=== PATIENT | female | born 1990 | race Two or more races ===

== ENCOUNTER 2021-07-24 09:53 | Outpatient (REF) | payer OTHER, SELFPAY ==
--- NOTE | ~2021-07-24 | XR_ITS ---
EXAMINATION: XR CHEST CLINICAL INFORMATION: Mild intermittent asthma COMPARISON: None TECHNIQUE: 2 views of the chest were obtained. FINDINGS: No significant abnormality is noted involving the heart, lungs, mediastinum, bony thorax or soft tissues. XR/XR chest 2V IMPRESSION: Unremarkable examination.
[2021-07-24 10:59] LABS: Hematocrit 41.3 % (37.0-47.0); Hemoglobin 13.8 g/dl (12.0-16.0); Mean Corpuscular HGB Conc 33.4 g/dl (31.0-35.0); Mean Corpuscular Hemoglobin 28.6 pg (27.0-33.0); Mean Corpuscular Volume 85.7 fL (80.0-98.0); Mean Platelet Volume 10.8 fL (9.4-12.3); Platelet Count 340 X10*3/uL (160-400); Red Blood Count 4.82 X10*6/uL (4.20-5.50)
[2021-07-24 11:13] LABS: Alanine Aminotransferase 15 U/L (0-31); Albumin Level 4.5 g/dL (3.5-5.0); Alkaline Phosphatase 88 U/L (39-117); Anion Gap 12 (12-20); Aspartate Amino Transferase 16 U/L (5-31); Blood Urea Nitrogen 12 mg/dL (9-16); Calcium 9.9 mg/dL (8.4-10.2); Carbon Dioxide 25 mmol/L (22-29); Chloride 105 mmol/L (96-108); Estimated Glomerular Filt Rate > 60; Glucose Fasting 100 mg/dL (60-99); Potassium 4.4 mmol/L (3.3-5.1); Sodium 138 mmol/L (135-145); Total Protein 7.6 g/dL (6.5-8.0)
[2021-07-24 11:15] LABS: Estimated Average Glucose 105 mg/dL; Hemoglobin A1c % 5.3 %
[2021-07-24 11:25] LABS: TSH reflex Free T4 0.93 uIU/mL (0.32-4.0)
== END 2021-07-24 09:54 | disposition home or self-care (01) ==
LOC: HO.XRAY 09:53
PROVIDERS: PCP Physician Assistant; Visit Provider Physician Assistant
DX: Z13.29 Encounter for screening for other suspected endocrine disorder (principal); J45.20 Mild intermittent asthma, uncomplicated
CPT/HCPCS: 36415; 71046; 80053; 83036; 84443; 85027

== ENCOUNTER 2023-03-11 11:19 | Outpatient (AMB) | payer OTHER, SELFPAY ==
--- NOTE | 2023-03-11 11:57 | AM.OFFVISNUR ---
Intake Intake Visit Reasons: TB Allergies sertraline [From Zoloft] Adverse Reaction (Intermediate, Verified 05/30/22 10:52) Diarrhea Office Meds tuberculin PPD 5 tub. unit/0.1 mL intradermal injection solution Performing Provider: Ildefonso Kwan PA-C [facility] Administered by: Urvashi Mcgrath RN on 03/11/23 11:57 Dose Route Admin Location Dispensed Lot Number Expiration Date NDC Photograph Enlarger 0.1 mL intradermal left forearm 0.1 mL [id number] 03/24/26 45215-120-82 [employer] Coding Assessment & Plan Assessment & Plan Orders: Orders AMB PPD Planted Today Z11.1 - Encounter for screening for respiratory tuberculosis
== END 2023-03-11 11:57 | disposition home or self-care (01) ==
PROVIDERS: PCP Physician Assistant; Visit Provider Physician Assistant
DX: Z11.1 Encounter for screening for respiratory tuberculosis (principal)
CPT/HCPCS: 86580

== ENCOUNTER 2024-09-30 13:25 | Outpatient (AMB) | payer OTHER, SELFPAY ==
--- NOTE | 2024-09-30 13:28 | MHC.PC.OV ---
Vital Signs 09/30/24 13:38 Height 5 ft Weight 203 lb BMI 39.6 BP 98/70 Blood Pressure Location Lt brachial Position Sitting Pulse 74 Pulse Source Pulse Oximeter Temp 97.1 F Temp Source Temporal Artery Scan Pulse Oximetry (%) 99 Oxygen Delivery Method Room Air Intake Visit Reasons: annual exam Composition Molder Required: No Accompanied by: Self / Same As Patient Allergies sertraline [From Zoloft] Adverse Reaction (Intermediate, Verified 09/30/24 13:48) Diarrhea Medication List - Last Reconciled 09/30/24 by Ildefonso Kwan PA-C acetaminophen 500 mg PO TID 30 days albuterol sulfate 90 mcg/actuation (Ventolin HFA) 1 inh inhalation QID PRN 30 days escitalopram oxalate (Lexapro) 5 mg PO DAILY 30 days lorazepam 0.5 mg PO BID 4 days norethindrone (contraceptive) (Incassia) 0.35 mg PO DAILY sumatriptan succinate take 1 tab at onset of headache; if no relief may repeat 1 tab after at least 2 hrs; max = 4 tabs/24 hr PO Tobacco use date assessed: 09/30/24 Dental Screening Dental Screen Date: 09/30/24 Did you have a dental visit in the last 12 months?: Yes Did you have a dental problem in the last 6 months where you did not have access to dental care?: No Was dental information given to patient?: Patient has dentist HPI annual exam HPI Details Patient is a 33-year-old female here today for routine annual physical. Patient has a past medical history significant for generalized anxiety disorder, major depressive disorder, obesity. .. Concerns--> The patient describes symptoms of pain associated with Achilles tendonitis, worsened by physical activities, and acknowledges the positive impact of reducing sodium intake on her well-being Generalized anxiety disorder: She reports her anxiety is has been fairly well controlled without medication. Was previously on SSRI therapy and p.r.n. use of lorazepam .. Class 2 obesity: She reports challenges in losing weight and notes a 4-pound decrease over the past few months. Despite regular home workouts and efforts to manage her diet, she is finding it difficult to achieve her weight loss goals. She attributes some difficulty to personal life stressors. 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 Vaccine: Up-to-date with tetanus vaccine, up-to-date with flu vaccine, declines COVID [facility] Surgical History S/P wisdom tooth extraction History of removal of ovarian cyst Family History Father Substance use disorder Mother Diabetes Substance use disorder Sister Cervical cancer Daughter No problems noted. 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 1. Little interest or pleasure in doing things: not at all 2. Feeling down, depressed, or hopeless: several days 3. Trouble falling or staying asleep, or sleeping too much: several days 4. Feeling tired or having little energy: not at all 5. Poor appetite or overeating: several days 6. Feeling bad about yourself - or that you are a failure or have let yourself or your family down: not at all 7. Trouble concentrating on things, such as reading the newspaper or watching television: several days 8. Moving or speaking so slowly that other people could have noticed. Or the opposite - being so fidgety or restless that you have been moving around a lot more than usual: not at all 9. Thoughts that you would be better off or of hurting yourself in some way: not at all Total score: 4 Depression Screening Interpretation: Negative Depression Screening Done: Yes 60478 - PHQ-9 Billing: Yes Source: Developed by Drs. Elpidio Lynch, Kath Santana, Figueroa Fields and colleagues, with an educational leticia from [employer]. Thrive Questionnaire Date Thrive assessed: 09/30/24 I am a: Patient What is your living situation today?: I have a steady place to live Within the past 12 months, did the food you bought not last and you didn't have the money to get more?: Never true Within the past 12 months, did you worry whether your food would run out before you got money to buy more?: Sometimes True Do you have trouble paying for medicines?: No Do you have trouble getting transportation to medical appointments?: Yes Do you have trouble paying your heating and electricity bill?: No Do you have trouble taking care of your child, family member or friend?: No Do you have trouble with day-to-day activities such as bathing, preparing meals, shopping, managing finances, etc.?: No Are you currently unemployed and looking for a job?: No Are you interested in more education?: No Please select the resources that you would like help with: None Currently or been in a relationship where the following occur: No concerns reported THRIVE Score: 2 AUDIT C Alcohol Use Questionnaire (AUDIT-C) 1. How often do you have a drink containing alcohol?: Monthly or less 2. How many drinks containing alcohol do you have on a typical day when you are drinking?: 1 or 2 3. How often do you have six or more drinks on one occasion?: Never Total Score: 1 RUDDY-7 AMB Questionnaire RUDDY-7 Date RUDDY - 7 assessed: 09/30/24 Feeling nervous, anxious, or on edge: 1 = Several days Not being able to stop or control worryin = Several days Worrying too much about different things: 1 = Several days Trouble relaxin = Several days Being so restless that it is hard to sit still: 1 = Several days Becoming easily annoyed or irritable: 0 = Not at all Feeling afraid as if something awful might happen: 0 = Not at all Total RUDDY-7 score (0-4 normal; 5-9 mild; 10-14 moderate; 15-21 severe): 5 Source: Developed by Drs. Elpidio Lynch, Kath Santana, Figueroa Fields and colleagues, with an educational leticia from [employer]. RUDDY-7 Assessment Billing RUDDY-7 Assessment Tool: RUDDY-7 Assessment 29193 Review of Systems Const Denies body aches, Denies chills, Denies excessive sweating, Denies fatigue, Denies fever(s) and Denies headache(s) Eyes Denies blurry vision ENT Denies dysphagia, Denies vertigo, Denies dizziness, Denies headache(s), Denies hearing loss and Denies tinnitus Card Denies chest pain, Denies chest pain with activity, Denies syncope, Denies irregular heart rhythm and Denies dyspnea Resp Denies chest congestion, Denies cough, Denies hemoptysis, Denies dyspnea and Denies wheezing GI Denies abdominal pain, Denies melena, Denies hematochezia, Denies coffee ground emesis, Denies dysphagia, Denies diarrhea, Denies nausea and Denies vomiting Denies urinary frequency, Denies dysuria, Denies urinary hesitancy and Denies urinary urgency Musc Denies arthralgias, Denies limited range of motion, Denies muscle cramps and Denies muscle weakness Skin/Breast Denies rash and Denies skin ulcer Neuro Denies Abnormal speech present, Denies confusion, Denies vertigo, Denies dizziness, Denies syncope, Denies headache(s), Denies memory loss and Denies seizure-like activity Psych Denies anxiety, Denies confusion, Denies depression, Denies memory loss, Denies panic attacks and Denies paranoia Endo Denies excessive sweating, Denies fatigue, Denies flushing, Denies polydipsia and Denies polyuria Aller/Immun Denies wheezing Physical exam (Primary Care) Vital Signs: Last Vital Signs Temp 97.1 F 09/30/24 13:38 Pulse 74 09/30/24 13:38 BP 98/70 09/30/24 13:38 Pulse Ox 99 09/30/24 13:38 Oxygen Delivery Method Room Air 09/30/24 13:38 BMI result Body Mass Index 39.6 BMI Assessment/Plan discussion: High BMI High, discussed plan: lifestyle, weight reduction, dietary and physical activity Tobacco/Smoking Status: Tobacco use Status Tobacco use date assessed 09/30/24 09/30/24 13:36 Patient Tobacco Use Status Never used Tobacco 09/30/24 13:28 Tobacco use type 05/30/22 11:18 e-Cigarette/Vaping Use Never Used 09/30/24 13:28 PHQ-9: PHQ-9 Score PHQ-9: Total score 4 09/30/24 13:36 Depression Screening Interpretation: Negative Thrive Assessment: Date of Thrive Assessment Date Thrive assessed 09/30/24 09/30/24 13:36 Currently or been in a relationship where the following occur: No concerns reported Const Other: Obese General: cooperative, comfortable, no acute distress, alert and awake; No confusion Orientation/consciousness: oriented to person, oriented to place, patient oriented x3 and No confusion [facility] Head: Yes normocephalic Ears: external ears normal and TM's normal bilaterally Face and sinus: No sinus tenderness Mouth: Normal oral and palatal mucosa present and tongue normal Teeth and gingiva: dentition normal and gingiva normal Throat: Yes posterior oropharynx normal, Yes tonsils normal and Yes uvula midline Eyes Conjunctivae: conjunctivae normal Sclerae: sclerae normal Pupils: Equal, round and reactive pupils present EOM: EOMs intact bilaterally Direct Ophthalmoscopy: No no photophobia Neck Neck: Yes no lymphadenopathy, No tender and Yes no JVD Thyroid: Thyroid normal Carotids: no bruits Chest Chest palpation & inspection: no tenderness Resp Effort & Inspection: normal respiratory effort, no audible wheezes, not labored and no stridor Auscultation: no crackles, no rales, no rhonchi and no wheezes Cardio Jugular venous distension: no JVD Rate: regular rate, not bradycardic and not tachycardic Rhythm: regular rhythm Bruits: no carotid bruits Peripheral pulses: Peripheral pulses 2+ throughout GI Inspection: Yes normal to inspection, No abdominal wall ecchymosis and No visible herniation Palpation (GI): Soft to palpation, nontender, no guarding, not rigid and No hepatosplenomegaly present Auscultation: normoactive bowel sounds General: Yes no CVA tenderness Back/Spine/Pelvis Back: no CVA tenderness and No back tenderness Cervical Spine: cervical ROM normal Thoracic/Lumbar Spine: thoracic and lumbar spine normal to inspection, straight leg raise negative bilaterally, No thoraco-lumbar ROM limited and No lumbar spinal tenderness Skin Lesions: no lesions Rashes: no rashes Wounds: no wounds Neuro General: oriented to person, oriented to place, patient oriented x3, CN's II-XI intact bilaterally and No confusion Cranial nerves: Yes Equal, round and reactive pupils present and Yes Normal accommodation reflex present Cognition (Neuro): normal cognition Speech: No Abnormal speech present Gait exam (Neuro): Normal gait present Motor exam (neuro): 5/5 motor strength present throughout Extrem Right upper extremity: full ROM; no cyanosis Left upper extremity: full ROM; no cyanosis Right lower extremity: no edema Left lower extremity: no edema Psych Appearance: grossly normal Mental Status: mental status grossly normal Affect: normal affect Attitude: cooperative Thought process: Normal thought process present Coding Level of Care Code Est Pt Prev Care 18-39y(07177) Diagnoses Annual physical exam Z00.00 Mild intermittent asthma without complication J45.20 Asthma severity: mild Asthma persistence: intermittent Asthma complication type: uncomplicated RUDDY (generalized anxiety disorder) F41.1 Class 2 obesity E66.812 Achilles tendinitis of right lower extremity M76.61 Screening-pulmonary TB Z11.1 Additional Codes RUDDY-7 Assessment Billing - RUDDY-7 Assessment Tool: RUDDY-7 Assessment 67160 ([id number]) PHQ-9 - 92326 - PHQ-9 Billing: Yes ([id number]) Assessment & Plan Assessment & Plan (1) Annual physical exam: Code(s): Z00.00 - Encounter for general adult medical examination without abnormal findings Category: Medical Plan: As per HPI (2) Asthma: Code(s): J45.909 - Unspecified asthma, uncomplicated Category: Medical Qualifiers: Asthma severity: mild Asthma persistence: intermittent Asthma complication type: uncomplicated Qualified Code(s): J45.20 - Mild intermittent asthma, uncomplicated Plan: Patient reports her asthma is fairly well controlled, does exacerbate during allergy season and winter months. Does have an albuterol inhaler available to her to use for shortness of breath and wheeze. (3) RUDDY (generalized anxiety disorder): Code(s): F41.1 - Generalized anxiety disorder Category: Medical Plan: Patient reports her anxiety has been well controlled without medication. Was previously on SSRI and lorazepam as needed though feels he does not need this medication and/or mental health therapy. (4) Class 2 obesity: Code(s): E66.812 - Obesity, class 2 Category: Medical Plan: Patient does understand her BMI is over 35 and has been trying due adapt to better eating habits and be more physically active to reduce her weight. She has been struggling to lose weight and is interested in speaking with the weight workforce management manager and will weight reduction medication. (5) Achilles tendinitis of right lower extremity: Code(s): M76.61 - Achilles tendinitis, right leg Category: Medical Plan: Recommend therapy for flexibility and inflammation management due to pain with activities. 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 Orders: Orders Complete Blood Count no Diff Today Z13.1 - Encounter for screening for diabetes mellitus T Spot TB Today Z11.1 - Encounter for screening for respiratory tuberculosis TSH reflex Free T4 Today E66.812 - Obesity, class 2 Comprehensive Eleva. Panel Fast Today Z13.1 - Encounter for screening for diabetes mellitus Referrals Medical Weight Management Referral E66.812 - Obesity, class 2 Medications: Refilled acetaminophen 500 mg PO TID 30 days 90 tabs 2RF pain G43.009 - Migraine without aura, not intractable, without status migrainosus albuterol sulfate 90 mcg/actuation (Ventolin HFA) 1 inh inhalation QID 30 days PRN 8.5 grams 1RF shortness of breath or wheezing J45.20 - Mild intermittent asthma, uncomplicated Discontinued sumatriptan succinate Discontinued Reason: Doctor's Order take 1 tab at onset of headache; if no relief may repeat 1 tab after at least 2 hrs; max = 4 tabs/24 hr PO 9 tabs 2RF G43.009 - Migraine without aura, not intractable, without status migrainosus lorazepam Discontinued Reason: Doctor's Order 0.5 mg PO BID 4 days 8 tabs 0RF anxiety F41.1 - Generalized anxiety disorder escitalopram oxalate (Lexapro) Discontinued Reason: Doctor's Order 5 mg PO DAILY 30 days 30 tabs 6RF F41.1 - Generalized anxiety disorder
[2024-09-30 13:38] VITALS: BP 98/70; PULSE 74; TEMP 36.2; O2SAT 99; BMI 39.6
== END 2024-09-30 14:08 | disposition home or self-care (01) ==
LOC: HO.HMCH 13:26
PROVIDERS: PCP Physician Assistant; Visit Provider Physician Assistant
DX: Z00.00 Encounter for general adult medical examination without abnormal findings (principal); J45.20 Mild intermittent asthma, uncomplicated; Z68.39 Body mass index [BMI] 39.0-39.9, adult; E66.812 Obesity, class 2; F41.1 Generalized anxiety disorder; M76.61 Achilles tendinitis, right leg; Z11.1 Encounter for screening for respiratory tuberculosis

== ENCOUNTER → 2024-09-30 13:25 | Outpatient (BNVA) | payer OTHER, SELFPAY | PROVIDERS: PCP Physician Assistant; Visit Provider Physician Assistant | DX: Z00.00 Encounter for general adult medical examination without abnormal findings (principal); F41.1 Generalized anxiety disorder; F32.A Depression, unspecified; J45.20 Mild intermittent asthma, uncomplicated; G43.009 Migraine without aura, not intractable, without status migrainosus; M76.61 Achilles tendinitis, right leg; E66.812 Obesity, class 2; Z68.39 Body mass index [BMI] 39.0-39.9, adult | CPT/HCPCS: 96127; 99395 ==

== ENCOUNTER 2024-10-06 09:49 | Outpatient (REF) | payer OTHER, SELFPAY ==
[2024-10-06 10:24] LABS: Hematocrit 41.3 % (37.0-47.0); Hemoglobin 14.2 g/dl (12.0-16.0); Mean Corpuscular HGB Conc 34.4 g/dl (31.0-35.0); Mean Corpuscular Hemoglobin 28.7 pg (27.0-33.0); Mean Corpuscular Volume 83.6 fL (80.0-98.0); Mean Platelet Volume 10.2 fL (9.4-12.3); Platelet Count 295 X10*3/uL (160-400); Red Blood Count 4.94 X10*6/uL (4.20-5.50); White Blood Count 10.3 X10*3/uL (4.8-10.8)
[2024-10-06 11:06] LABS: Alanine Aminotransferase 14 U/L (0-31); Albumin Level 4.4 g/dL (3.5-5.0); Alkaline Phosphatase 92 U/L (39-117); Anion Gap 10 (12-20); Aspartate Amino Transferase 19 U/L (5-31); Bilirubin Total 0.7 mg/dL (0.0-1.0); Blood Urea Nitrogen 12 mg/dL (9-16); Carbon Dioxide 25 mmol/L (22-29); Chloride 106 mmol/L (96-108); Estimated Glomerular Filt Rate > 60; Glucose Fasting 93 mg/dL (60-99); Potassium 4.2 mmol/L (3.3-5.1); Sodium 137 mmol/L (135-145); TSH reflex Free T4 0.84 uIU/mL (0.32-4.0); Total Protein 7.5 g/dL (6.5-8.0)
[2024-10-11 00:49] LABS: TS Negative Control Passed; TS Panel A 0; TS Panel B 0; TS Positive Control Passed; TSpotTB Negative (Negative)
== END 2024-10-06 09:50 | disposition home or self-care (01) ==
LOC: HO.LAB 09:49
PROVIDERS: PCP Physician Assistant; Visit Provider Physician Assistant
DX: Z13.1 Encounter for screening for diabetes mellitus (principal); Z11.1 Encounter for screening for respiratory tuberculosis; E66.812 Obesity, class 2
CPT/HCPCS: 36415; 80053; 84443; 85027; 86481

== ENCOUNTER 2025-02-21 08:17 | Outpatient (AMB) | payer OTHER, SELFPAY ==
[2025-02-21 10:56] VITALS: BMI 39.1
--- NOTE | 2025-02-21 10:56 | MHC.OFFVISWM ---
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 Was referred to us by Dr. Kwan. Previous weight loss efforts include self diets and exercise. [facility] Medical History (Updated 02/21/25 @ 11:00 by Gianluca Dunaway MD) Anxiety Depression Asthma BMI 39.0-39.9,adult Surgical History S/P wisdom tooth extraction History of removal of ovarian cyst Family History Father Substance use disorder Mother Diabetes Substance use disorder Sister Cervical cancer Daughter No problems noted. 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 Cognitive needs: No Hearing needs: No Vision needs: No Telehealth Telehealth Telehealth Platform: Telephone Location of provider rendering services: practice address Location of patient: address on file Patient Identification confirmed using: Name, : Yes Telehealth method: voice only Patient verbally consented to treatment: Yes Patient verbally consented to billing insurance company: Yes Patient informed of any privacy concerns related to visit: Yes Minutes spent on Phone/Video with Pt.: 45 Assessment & Plan Assessment & Plan (1) Class 2 obesity: Code(s): E66.812 - Obesity, class 2 Category: Medical Plan: 1. As we discussed, based on your present BMI you are approximately 90lbs overweight. In my opinion, for any weight loss strategy to be successful should have a high probability to help you lose at least 80lbs out of 90lbs of the extra weight you carry. We discussed in detail the available therapeutic options: 1) our lifestyle intervention program that has an average weight loss of 10% in 3 months.?Some patients continue it for longer and have lost over 50lbs but this is not common. Our lifestyle program can be provided by me or by using our software karla, the [employer] karla. I will provide you with a link to use the karla if you choose to do so. We use protein shakes and protein bars to replace some of the meals of the day and cover your appetite better. We will decide together the exact combination. 2) Weight loss medications: these can be used in conjunction with our lifestyle program or you may choose to use them without following a lifestyle program from my program but your own. As we discussed, your insurance requires to try first a weight loss pill called Phentermine which you take once a day. It is well tolerated usually and can be used for 3 months per FDA recommendations.We discussed the potential side-effects of the Phentermine such as irritability, dry mouth, difficulty sleeping, dizziness, numbness in feet and high blood pressure. I asked her to get a blood pressure monitor and measure the blood pressure daily in the morning and evening. She needs to send the blood pressure readings daily and to call the office for blood pressure over 140/80 and she understands that. 3) We also discussed about the lap sleeve gastrectomy. In my opinion this is the best option to solve your problem based on your situation and should be used in conjunction with the two previous options. A good strategy to make this decision to proceed with surgery, is to set some goals with the lifestyle intervention and medication options: If you don't lose at least 10lbs the first 6 weeks after starting the program or at least 10% in 3 months. ?I emphasized the importance of close follow-up, adherence to instructions and good communication. The surgery does not replace the need to change your lifestlyle which is the cause of the obesity problem. The surgery provides the motivation to try again to change your lifestyle, it reduces the appetite and make the transition to a better lifestyle easier and doubles the amount of weight you would lose compared to doing the lifestyle change without the surgery. You will need to be on a liquid diet with protein shakes for 2 weeks before surgery to maximize weight loss and boost your nutritional status to recover better from surgery and also for the first two weeks after surgery to let the stomach heal before we introduce other foods. After the first 2 weeks we will introduce protein bars and soft foods like scrambled eggs, cottage cheese and yogurt and after the 6th week will introduce meat, fish and cooked vegetables in small amounts. Over time you should be able to eat everything in small amounts. Side effects like nausea, vomiting, heartburn or abdominal pain are not common in the practice unless you are not following in the practice. This operation requires lifetime commitment to following in our practice and communication with me. You will much less weight and experience side effects if you don?t communicate or not following in the practice. Complications are rare and in our practice is about 1/10 of the national average. The patient will consider these options and will get back to me with her decision as to how to proceed.
== END 2025-02-21 11:06 | disposition home or self-care (01) ==
LOC: HO.HBS 08:17
PROVIDERS: PCP Physician Assistant; Visit Provider Surgery
DX: E66.812 Obesity, class 2 (principal)
CPT/HCPCS: 99204